=== PATIENT | male | born 1945 | race Caucasian/White ===

== ENCOUNTER 2016-07-19 06:30 | Day surgery (SDC) | payer MEDICARE, OTHER ==
[~2016-07-19 06:30] MED LIST: ASAB PO; CHROMAX PO; CYANO1000T PO; FLOMAX4 PO; LIOR10 PO; LISINOPRIL40 MG PO; MAGOX4 PO; MOBIC15 MG PO; NEUR100 PO; OTC POTASSIUM PO; PRILOSEC40 MG PO; VITD PO; ZANTAC300 MG PO
== END 2016-07-19 23:59 | disposition home or self-care (01) ==
LOC: SDC 06:30
PROVIDERS: Orthopaedic Surgery
PROC: 3E0R3BZ Introduction of Anesthetic Agent into Spinal Canal, Percutaneous Approach (ICD-10-PCS; 2016-07-19)
PROC: 3E0R33Z Introduction of Anti-inflammatory into Spinal Canal, Percutaneous Approach (ICD-10-PCS; principal; 2016-07-19 07:45)
DX: M54.16 Radiculopathy, lumbar region (principal); Z98.41 Cataract extraction status, right eye; Z98.42 Cataract extraction status, left eye; Z96.1 Presence of intraocular lens; I10 Essential (primary) hypertension; M19.90 Unspecified osteoarthritis, unspecified site; Z96.649 Presence of unspecified artificial hip joint; K21.9 Gastro-esophageal reflux disease without esophagitis; Z90.49 Acquired absence of other specified parts of digestive tract; L30.9 Dermatitis, unspecified; Z79.82 Long term (current) use of aspirin; Z79.1 Long term (current) use of non-steroidal anti-inflammatories (NSAID); Z79.899 Other long term (current) drug therapy; Z98.890 Other specified postprocedural states
CPT/HCPCS: J1040; J2250; J3010; Q9967

== ENCOUNTER 2016-08-02 06:07 | Day surgery (SDC) | payer MEDICARE, OTHER | END 2016-08-02 09:52 | disposition home or self-care (01) | LOC: SDC 06:07 | PROVIDERS: Orthopaedic Surgery | PROC: 3E0R33Z Introduction of Anti-inflammatory into Spinal Canal, Percutaneous Approach (ICD-10-PCS; principal; 2016-08-02 07:00) | DX: M54.16 Radiculopathy, lumbar region (principal); I10 Essential (primary) hypertension; G47.33 Obstructive sleep apnea (adult) (pediatric); Z99.81 Dependence on supplemental oxygen; M19.90 Unspecified osteoarthritis, unspecified site; K21.9 Gastro-esophageal reflux disease without esophagitis; Z90.49 Acquired absence of other specified parts of digestive tract; Z98.41 Cataract extraction status, right eye; Z98.42 Cataract extraction status, left eye; Z96.641 Presence of right artificial hip joint; Z98.890 Other specified postprocedural states | CPT/HCPCS: J1040; J2250; J3010; Q9967 ==